=== PATIENT | female | born 1950 | race Caucasian/White ===

== ENCOUNTER 2017-03-20 12:23 | Emergency (ER) | payer MEDICARE, OTHER ==
[2017-03-20] MEDS ORDERED: HYDROcodone/ACETAMIN 5-325 MG* 1 TAB PO ONE (13:27)
[2017-03-20] MEDS ORDERED: Ketorolac INJ* 60 MG/2 ML VIAL IM ONE (13:27)
--- NOTE | 2017-03-20 13:54 | RAD ---
INDICATION: Left shoulder pain. TECHNIQUE: 4 views of the left shoulder were obtained. FINDINGS: The bones are in normal alignment. No fracture is seen. There are calcifications adjacent to the lateral aspect of the proximal humerus suggesting the possibility of calcific tendinitis or bursitis. There is mild osteoarthritic change in the acromioclavicular joint. IMPRESSION: FINDINGS SUGGESTIVE OF CALCIFIC TENDINITIS OR BURSITIS.
[2017-03-20 14:22] VITALS: BP 136/70
--- NOTE | 2017-03-20 18:28 | ED ---
Prabha Grider Alfonso, scribed for Govind Vaughn MD on 03/20/17 at 1314 . Upper Extremity Pain - HPI Summary HPI Summary: This patient is a 66 year old F presenting to [facility] accompanied by daughter with a chief complaint of left shoulder pain since one week ago, worse since earlier today. She reports I think I was grinding my shoulder into the mattress when I was sleeping. The patient rates the aching pain 6/10 in severity. Symptoms aggravated by movement and palpation. Symptoms alleviated by nothing. Symptoms not alleviated by 600 mg ibuprofen earlier today. Patient reports decreased left shoulder ROM. Patient denies trauma. - History of Current Complaint Chief Complaint: EDExtremityUpper Stated Complaint: LEFT ARM CANNOT RAISE Hx Obtained From: Patient Mechanism Of Injury: Other - I think I was grinding my shoulder into the mattress when I was sleeping. Onset/Duration: Started Weeks Ago - 1, Worse Since - today Timing: Constant Pain Location: Shoulder - L Character: Aching Aggravating Factor(s): Movement, Other - Palpation Alleviating Factor(s): Nothing Associated Signs & Symptoms: Positive: Other - decreased left shoulder ROM. Patient denies trauma. - Allergies/Home Medications Allergies/Adverse Reactions: Allergies Allergy/AdvReac Type Severity Reaction Status Date / Time Statins Allergy Muscle Ache Verified 03/20/17 12:27 PMH/Surg Hx/FS Hx/Imm Hx Sensory History: Denies: Hx Legally Blind, Hx Deafness Opthamlomology History: Denies: Hx Legally Blind EENT History: Denies: Hx Deafness - Immunization History Date of Influenza Vaccine: 2017 Infectious Disease History: No Infectious Disease History: Denies: Traveled Outside the [place] in Last 30 Days - Family History Known Family History: Positive: Unknown - ADOPTED - Social History Alcohol Use: Rare Hx Substance Use: No Substance Use Type: Reports: None Hx Tobacco Use: Yes Smoking Status (MU): Former Smoker Review of Systems Negative: Fever Positive: Other - left shoulder pain, decreased left shoulder ROM; negative trauma. All Other Systems Reviewed And Are Negative: Yes Physical Exam - Summary Physical Exam Summary: VITAL SIGNS: Reviewed. GENERAL: Patient is a well-developed and nourished female who is lying comfortable in the stretcher. Patient is not in any acute respiratory distress. HEAD AND FACE: No signs of trauma. No ecchymosis, hematomas or skull depressions. No sinus tenderness. EYES: PERRLA, EOMI x 2, No injected conjunctiva, no nystagmus. EARS: Hearing grossly intact. Ear canals and tympanic membranes are within normal limits. MOUTH: Oropharynx within normal limits. NECK: Supple, trachea is midline, no adenopathy, no JVD, no carotid bruit, no c- spine tenderness, neck with full ROM. CHEST: Symmetric, no tenderness at palpation LUNGS: Clear to auscultation bilaterally. No wheezing or crackles. CVS: Regular rate and rhythm, S1 and S2 present, no murmurs or gallops appreciated. ABDOMEN: Soft, non-tender. No signs of distention. No rebound no guarding, and no masses palpated. Bowel sounds are normal. EXTREMITIES: Decreased ROM at left shoulder. Abductor 5 degrees. Tenderness at palpation along deltoid muscle. no edema, no cyanosis or clubbing. NEURO: Alert and oriented x 3. No acute neurological deficits. Speech is normal and follows commands. SKIN: Dry and warm Triage Information Reviewed: Yes Vital Signs On Initial Exam: Initial Vitals Temp Pulse Resp BP Pulse Ox 98.0 F 80 16 143/66 100 03/20/17 12:27 03/20/17 12:27 03/20/17 12:27 03/20/17 12:27 03/20/17 12:27 Vital Signs Reviewed: Yes Diagnostics - Vital Signs Vital Signs Temp Pulse Resp BP Pulse Ox 03/20/17 12:27 98.0 F 80 16 143/66 100 - Laboratory Lab Statement: Any lab studies that have been ordered have been reviewed, and results considered in the medical decision making process. - Radiology Shoulder XR Radiology Interpretation Completed By: Radiologist - FINDINGS SUGGESTIVE OF CALCIFIC TENDINITIS OR BURSITIS. ED physician has reviewed this radiology report and agrees. Course/Dx - Course Assessment/Plan: This patient is a 66 year old F presenting to [facility] accompanied by daughter with a chief complaint of left shoulder pain since one week ago, worse since earlier today. She reports I think I was grinding my shoulder into the mattress when I was sleeping. The patient rates the aching pain 6/10 in severity. Symptoms aggravated by movement and palpation. Symptoms alleviated by nothing. Symptoms not alleviated by 600 mg ibuprofen earlier today. Patient reports decreased left shoulder ROM. Patient denies trauma. Shoulder XR reveals, per radiologist, FINDINGS SUGGESTIVE OF CALCIFIC TENDINITIS OR BURSITIS. ED physician has reviewed this radiology report and agrees. In the ED course the patient was given Toradol and [place]. She was place in a shoulder immobilizer. Patient will be discharged with prescription for [place], Motrin, Medrol and follow up from PCP. The patient is agreeable with this plan. The patient is hemodynamically stable, alert and oriented x3. - Diagnoses Provider Diagnoses: Left shoulder pain, Bursitis of left shoulder Discharge - Discharge Plan Condition: Stable Disposition: HOME Prescriptions: HYDROcodone/ACETAMIN 5-325 MG* [[place] 5-325 TAB*] 1 tab PO Q6H PRN #12 tab MDD 4 PRN Reason: Pain Ibuprofen TAB* [Motrin TAB* 600 MG] 600 mg PO Q8H PRN #20 tab PRN Reason: Pain Methylprednisolone [Medrol Dosepak 4 MG*] 0 mg PO .SEE SUNNI INSTRUCTION #1 sunni Patient Education Materials: Shoulder Bursitis (ED) Referrals: [facility] [Outside] - 3 Days Additional Instructions: RETURN TO THE EMERGENCY DEPARTMENT FOR CHANGING OR WORSENING SYMPTOMS. The documentation as recorded by the Prabha majano Alfonso accurately reflects the service I personally performed and the decisions made by Roderick narayanan Walter, MD.
== END 2017-03-20 14:22 | disposition home or self-care (01) ==
LOC: ED 12:23
DX: M25.512 Pain in left shoulder (principal); M71.9 Bursopathy, unspecified
CPT/HCPCS: 96372; 99281; J1885